=== PATIENT | female | born 1955 | race Caucasian/White ===

== ENCOUNTER 2023-06-09 12:31 | Outpatient (CLI) | payer MEDICARE, MEDICAID, SELFPAY ==
--- NOTE | ~2023-06-09 | DEXA_ITS ---
Bone Density Report Name: SONNY SMITH Age: 67 Sex: Female Ethnicity: White Date of : 1955 Indication: postmenopausal; screening for osteoporosis; height loss; Referring Provider: SOLANGE HARO Study: Bone densitometry was performed. Exam Date: June 09, 2023 Accession number: [id number] Bone Density: Region BMD T-score Z-score Classification AP Spine(L1-L4) 0.988 -0.5 1.3 Normal Femoral Neck (Left) 0.589 -2.3 -0.7 Osteopenia Total Hip (Left) 0.712 -1.9 -0.6 Osteopenia Femoral Neck (Right) 0.625 -2.0 -0.4 Osteopenia Total Hip (Right) 0.624 -2.6 -1.3 Osteoporosis Femoral Neck Mean 0.607 -2.2 -0.6 Osteopenia Total Hip Mean 0.668 -2.2 -0.9 Osteopenia World Health Organization criteria for BMD impression classify patients as: Normal (T-score at or above -1.0), Osteopenia (T-score between -1.0 and -2.5), or Osteoporosis (T-score at or below -2.5). 10-year Fracture Risk: FRAX not reported because: Some T-score for Spine Total or Hip Total or Femoral Neck at or below -2.5 Clinical Information Provided by Patient: Has used the following medications: Vitamin D Patient maximum height was 64 Menopause Age: 51 No regular weight bearing exercise Drinks caffeinated beverages Onset of menses at age 14 Number of children 2 Impression: The patient has osteoporosis, based on the Right Total Hip T-score. Discussion: INCREASED RISK OF FRACTURE. BONE DENSITY IS UNDESIRABLY LOW AT ONE OR MORE SKELETAL SITES, CONSISTENT WITH POSTMENOPAUSAL OSTEOPOROSIS. This patient's lowest T-score meets the World Health Organization's (WHO) criteria for osteoporosis at one or more sites (T-score -2.5 or below). In untreated patients, the risk of osteoporotic fracture increases approximately two-fold for each 1.0 SD decrease in T-score. Low bone density is not the only risk factor for fracture; also consider factors such as patient's age, frailty or poor health, risk of falling, risk of injury, previous osteoporotic fracture, family history of osteoporosis, cigarette smoking, low body weight, etc. Not everyone with low bone mineral density has osteoporosis; osteomalacia and other metabolic bone disorders should also be considered. Patients who have osteoporosis should be evaluated for specific diseases and conditions (secondary causes) that may cause or contribute to bone loss. The [place] [employer]ocrinologists (AACE) and National Osteoporosis Foundation (NOF) recommend pharmacologic intervention for all postmenopausal women whose T-score is in this range. The patient should follow a healthful lifestyle (good nutrition with adequate calcium and vitamin D, and appropriate weight-bearing exercise). Follow-Up: Consider a repeat BMD and Vertebral Fracture Assessment (VFA) exam in 2
--- NOTE | ~2023-06-09 | MM_ITS ---
EXAMINATION: MM screening cyndi BI w lambert HISTORY: Screening mammogram TECHNIQUE: Craniocaudal and mediolateral oblique 3-D tomosynthesis images were obtained and synthetic 2-D images were generated. CAD analysis was submitted and interpreted. COMPARISON: No prior mammogram is available for comparison at this institution. BREAST PARENCHYMAL COMPOSITION: There are scattered areas of fibroglandular density. FINDINGS: No suspicious mass, calcification, or architectural distortion are identified in either christelle ast to suggest malignancy. IMPRESSION: 1. No mammographic evidence of malignancy. 2. Recommend routine screening mammography in one year. BI-RADS Category 1: Negative Reviewed, dictated and finalized at location A.
== END 2023-06-09 12:32 | disposition home or self-care (01) ==
LOC: CHSIMG 12:34
PROVIDERS: PCP Emergency Medicine; Visit Provider Emergency Medicine
DX: Z12.31 Encounter for screening mammogram for malignant neoplasm of breast (principal); Z78.0 Asymptomatic menopausal state; M85.89 Other specified disorders of bone density and structure, multiple sites; M81.0 Age-related osteoporosis without current pathological fracture
CPT/HCPCS: 77063; 77067; 77080

== ENCOUNTER 2023-10-02 08:35 | Day surgery (SDC) | payer MEDICARE, SELFPAY ==
[2023-09-28 13:30] VITALS: BMI 26.9
--- NOTE | 2023-10-02 07:23 | WPDANESEPPF ---
Anes - Initial Pre Proc Eval Procedure: Operation Date: 10/02/23 11:30 Proposed Procedures p Esophagogastroduodenoscopy - Clay Sheets MD s Screening Colonoscopy - Clay Sheets MD Date/Time: 10/02/23 07:23 Surgeon: Clay Sheets MD Pre Op Diagnosis: Dysphagia, Gastric Ulcer, Neoplasm Screening Patient Data Age: 67 Gender: F Height: 1.63 m Weight: 71 kg Allergies Allergy/AdvReac Type Severity Reaction Status Date / Time No Known Allergies Allergy Verified 10/02/23 12:15 Home Medications Medication Instructions Recorded Confirmed Type buprenorphine 300 mg/1.5 mL 300 mg subcut MONTHLY 08/29/23 10/02/23 History solution,exten.rel.subcutaneous syringe (Sublocade) citalopram 40 mg tablet 40 mg PO DAILY 08/29/23 10/02/23 History clonazepam 0.5 mg tablet 0.5 mg PO TID PRN Anxiety 08/29/23 10/02/23 History ergocalciferol (vitamin D2) 1,250 1,250 mcg PO WEEKLY 08/29/23 10/02/23 History mcg (50,000 unit) capsule hydrochlorothiazide 12.5 mg tablet 12.5 mg PO DAILY 08/29/23 10/02/23 History metoprolol succinate 100 mg 100 mg PO DAILY 08/29/23 10/02/23 History tablet,extended release 24 hr valacyclovir 1 gram tablet 1,000 mg PO DAILY 08/29/23 10/02/23 History Patient hx anesthesia problems: none Family hx anesthesia problems: none Results Review: All pre-operative results and documents have been reviewed as part of the pre-operative evaluation. [facility] Past Medical History Medical History (Updated 10/02/23 @ 13:10 by Clay Sheets MD) Anxiety Colon cancer screening Depression Dysphagia GERD (gastroesophageal reflux disease) Hypertension Social History Social History Smoking status: Never smoker Substance use: current Substance use type: marijuana Other substance usage details: daily Living arrangements: alone Spiritual care concerns: No Anes - Eval Final PreProcedure Day of Procedure 10/02/23 07:23 Patient weight: overweight Heart: regular rate and rhythm Lungs: clear to auscultation Airway: Mallampati scale class II Neurological: alert and oriented Last oral intake: >/= 8 hours ASA classification: III Emergent: no Anesthetic plan: proceed Anesthesia type and monitoring: general GIVS and standard monitoring Results Review: All pre-operative results and documents have been reviewed as part of the pre-operative evaluation. Informed Consent: The patient's anesthetic plan and its attendant risks and benefits were discussed with the patient/family/POA. Questions were solicited and answers provided to the satisfaction of the patient/family/POA.
[2023-10-02 12:27] VITALS: BP 145/67; PULSE 45; RESP 16; TEMP 36.1; O2SAT 99; BMI 24.8
[2023-10-02] MEDS: LACTATED RINGERS 1,000 ML 150 ML IV CONT (12:37)
--- NOTE | 2023-10-02 13:09 | PM.HPGS ---
History of Present Illness History of Present Illness Consent: Risks, benefits, and alternatives have been discussed and questions answered. Patient agrees to proceed with procedure. Chief complaint: Dysphagia, Gastric Ulcer, Neoplasm Screening Narrative: Alyssa Barksdale is a 67 year old female with dysphagia, had egd 2019 with small gastric ulcer. Also needs colon screening Review of Systems Constitutional: Constitutional: Denies headache(s) and Denies weakness Eyes: Eyes: Denies blurry vision ENT: Reports Normal hearing present, Denies headache(s) and Denies neck pain Cardiovascular: Cardiovascular: Denies chest pain and Denies dyspnea Respiratory: Respiratory: Denies dyspnea Gastrointestinal: Gastrointestinal: Reports no additional gastrointestinal complaints Genitourinary: Genitourinary: Denies dysuria Musculoskeletal: Musculoskeletal: Denies neck pain Integumentary/Breasts: Skin/Breast: Denies dry skin Neurologic: Reports Normal hearing present, Denies headache(s) and Denies weakness Psychiatric: Psychiatric: Denies anxiety Endocrine: Endocrine: Denies change in body appearance Hematologic/Lymphatic: Hematologic/Lymphatic: Denies easy bleeding Allergic/Immunologic: Allergic/Immunologic: Denies urticaria PMFSH Past Medical History Medical History (Updated 10/02/23 @ 13:10 by Clay Sheets MD) Anxiety Colon cancer screening Depression Dysphagia GERD (gastroesophageal reflux disease) Hypertension Social History Social History Smoking status: Never smoker Substance use: current Substance use type: marijuana Other substance usage details: daily Living arrangements: alone Spiritual care concerns: No Meds Home Medications and Allergies Home Medications Medication Instructions Recorded Confirmed Type buprenorphine 300 mg/1.5 mL 300 mg subcut MONTHLY 08/29/23 10/02/23 History solution,exten.rel.subcutaneous syringe (Sublocade) citalopram 40 mg tablet 40 mg PO DAILY 08/29/23 10/02/23 History clonazepam 0.5 mg tablet 0.5 mg PO TID PRN Anxiety 08/29/23 10/02/23 History ergocalciferol (vitamin D2) 1,250 1,250 mcg PO WEEKLY 08/29/23 10/02/23 History mcg (50,000 unit) capsule hydrochlorothiazide 12.5 mg tablet 12.5 mg PO DAILY 08/29/23 10/02/23 History metoprolol succinate 100 mg 100 mg PO DAILY 08/29/23 10/02/23 History tablet,extended release 24 hr valacyclovir 1 gram tablet 1,000 mg PO DAILY 08/29/23 10/02/23 History Allergies Allergy/AdvReac Type Severity Reaction Status Date / Time No Known Allergies Allergy Verified 10/02/23 12:15 Vital Signs Vital Signs - 24 hr 10/02/23 12:27 Temperature 97.0 F L Pulse Rate 45 L Respiratory Rate 16 Blood Pressure 145/67 H Pulse Oximetry 99 Oxygen Delivery Room Air Exam Const: General: comfortable and no acute distress HENMT: Face/Nose/Sinus: Normal nares present Eyes: General: appearance normal, both eyes and all related structures Neck: Neck: no JVD Resp: Auscultation: clear to auscultation bilaterally Cardio: Rate: regular rate Rhythm: regular rhythm GI: Inspection: non-distended GI Palp: Yes Soft to palpation Skin: General skin exam: normal color Neuro: General: gait normal Speech: normal speech Extrem: General: normal to inspection Psych: Mental Status: mental status grossly normal Assessment and Plan Assessment and plan (1) Dysphagia: Code(s): R13.10 - Dysphagia, unspecified Status: Acute Assessment and Plan: egd with bx (2) Colon cancer screening: Code(s): Z12.11 - Encounter for screening for malignant neoplasm of colon Status: Acute Assessment and Plan: colonoscopy
[2023-10-02 13:48] VITALS: BP 84/48; PULSE 53; RESP 16; O2SAT 98
--- NOTE | 2023-10-02 13:50 | WPDANESPN ---
Anes - Prog Note Post-Op Date/Time: 10/02/23 13:50 Cardiovascular status: normal Respiratory status: normal Airway patency: baseline Mental status: baseline Post-Op hydration status: normal Vital Signs: Last Vital Signs Temp 36.1 C L 10/02/23 12:27 Pulse 53 L 10/02/23 13:48 Resp 16 10/02/23 13:48 BP 84/48 L 10/02/23 13:48 Pulse Ox 98 10/02/23 13:48 O2 Del Method Room Air 10/02/23 13:48 Pain Score (VAS): 0 I/O: Intake & Output 10/01/23 10/02/23 10/02/23 23:59 07:59 15:59 Intake Total 600 Balance 600 Post-procedural complaints: none Patient Feedback: Patient satisfied with anesthetic care. Other Findings: Patient vital signs back to baseline. Patient denies nausea and vomiting. Patient's pain under control. Patient OK for discharge.
[2023-10-02 13:58] VITALS: BP 118/92; PULSE 62; RESP 16; O2SAT 100
[2023-10-02 14:08] VITALS: BP 136/83; PULSE 65; RESP 16; O2SAT 99
== END 2023-10-02 14:24 | disposition home or self-care (01) ==
PROVIDERS: PCP Emergency Medicine; Visit Provider Internal Medicine Gastroenterology
PROC: 0DJ08ZZ Inspection of Upper Intestinal Tract, Via Natural or Artificial Opening Endoscopic (ICD-10-PCS; CPT 43235; principal; 2023-10-02 11:30)
PROC: 0DJD8ZZ Inspection of Lower Intestinal Tract, Via Natural or Artificial Opening Endoscopic (ICD-10-PCS; CPT 45378; 2023-10-02 11:30)
DX: Z12.11 Encounter for screening for malignant neoplasm of colon (principal); D12.3 Benign neoplasm of transverse colon; K57.30 Diverticulosis of large intestine without perforation or abscess without bleeding; K30 Functional dyspepsia; K44.9 Diaphragmatic hernia without obstruction or gangrene
CPT/HCPCS: 45385; 43239

== ENCOUNTER 2023-10-03 10:43 | Outpatient (NON) | payer MEDICARE, SELFPAY | END 2023-10-03 10:44 | disposition home or self-care (01) | LOC: ANHLAB 10:45 | PROVIDERS: PCP Emergency Medicine; Visit Provider Internal Medicine Gastroenterology | DX: Z12.11 Encounter for screening for malignant neoplasm of colon (principal); D12.3 Benign neoplasm of transverse colon; K31.89 Other diseases of stomach and duodenum | CPT/HCPCS: 88305 ==

== ENCOUNTER 2024-12-20 14:00 | Outpatient (CLI) | payer MEDICARE, MEDICAID, SELFPAY ==
--- NOTE | 2024-12-20 13:59 | ECHO_ITS ---
Patient Info Name: Alyssa Barksdale Age: 69 years : 1955 Gender: Female Ht: 62 in Wt: 148 lbs BSA: 1.73 m2 HR: 67 bpm BP: 134 / 66 mmHg Heart Rhythm: Sinus Rhythm Technical Quality: Good Exam Date: 12/20/2024 2:05 PM Exam Location: Echo Lab Patient Status: Outpatient Admit Date: 12/20/2024 Staff Ordering Physician: Gerardo Malave DO Coat Hanger Shaper Machine Operator: Enma Nova RDCS Attending Provider: Gerardo Malave DO Referring Physician: Ananda SHEA; Exam Type: CA echo dop color flow w con Study Info Indications R06.09 - Other forms of dyspnea Complete two-dimensional, color flow and Doppler transthoracic echocardiogram is performed. Summary 1. Complete two-dimensional, color flow and Doppler transthoracic echocardiogram is performed. 2. Left ventricular chamber dimension is normal. 3. Left ventricular systolic function is normal, estimated at 60-65%. 4. The left ventricular diastolic function is grade I diastolic dysfunction. 5. E/e' 7 is not elevated. 6. Left atrial chamber dimension is mildly enlarged. 7. There is mild mitral valve regurgitation. 8. There is no tricuspid valve regurgitation. 9. No pulmonary hypertension, estimated pulmonary arterial systolic pressure is 20 mmHg. Left Ventricle E/e' 7 is not elevated. Left ventricular chamber dimension is normal. Left ventricular systolic function is normal, estimated at 60-65%. The left ventricular diastolic function is grade I diastolic dysfunction. Right Ventricle Right ventricular systolic function is normal and with normal TAPSE 2.0 cm. Right ventricular chamber dimension is normal. Left Atria Left atrial chamber dimension is mildly enlarged. Right Atria Right atrial chamber dimension is normal. Aortic Valve The aortic valve is trileaflet. There is no aortic valve stenosis. There is no aortic valve regurgitation. Pulmonic Valve There is no pulmonic regurgitation. Mitral Valve There is no mitral valve stenosis. There is mild mitral valve regurgitation. Tricuspid Valve There is no tricuspid valve regurgitation. No pulmonary hypertension, estimated pulmonary arterial systolic pressure is 20 mmHg. Pericardium/Pleural There is no pericardial effusion. Inferior Vena Cava Normal inferior vena cava with >50% collapse upon inspiration consistent with normal right atrial pressure, 5 mmHg. Aorta The aortic root size at the sinus of Valsalva is normal. Left Ventricular Outflow Tract Name Value Normal LVOT 2D LVOT Diameter 2.02 cm LVOT Doppler LVOT Peak Gradient 4 mmHg LVOT Mean Gradient 2 mmHg LVOT VTI 18.41 cm LVOT VTI/AV VTI Ratio 0.69 LVOT Stroke Volume 58.71 ml LVOT CO 3.60 l/min LVOT CI 2.08 L/min/m2 Pulmonic Valve Name Value Normal RVOT Doppler RVOT Peak Gradient 3 mmHg PV Doppler PV Peak Gradient 7 mmHg Mitral Valve Name Value Normal MV Doppler MV Decel [place] 286.43 cm/s2 MV PHT 0 s MV Area (PHT) 3.46 cm2 4.00-5.00 MV Diastolic Function MV E Peak Velocity 62.76 cm/s MV A Peak Velocity 71.26 cm/s MV E/A 0.88 MV Decel Time 0 s MV Annular TDI MV E/e' (Septal) 7.59 <=8.00 MV E/e' (Lateral) 7.90 <=8.00 MV E/e' (Average) 7.74 Tricuspid Valve Name Value Normal TV Regurgitation Doppler TR Peak Velocity 196.63 cm/s TR Peak Gradient 15 mmHg Estimated PAP/RSVP RA Pressure 5 mmHg <=5 PA Systolic Pressure 20 mmHg <36 RV Systolic Pressure 20 mmHg <36 Aorta Name Value Normal Ascending Aorta Ao Root Diameter (MM) 2.54 cm Ao Root Diam Index (MM) 1.47 cm/m2 Aortic Valve Name Value Normal AV Doppler AV Peak Velocity 135.54 cm/s AV Peak Gradient 7 mmHg AV Mean Gradient 4 mmHg AV VTI 26.66 cm AV Area (Cont Eq VTI) 2.20 cm2 >=3.00 AV Area (Cont Eq Hussein) 2.27 cm2 AV Regurgitation 2D LVOT Area 3.19 cm2 Ventricles Name Value Normal LV Dimensions 2D/MM IVS Diastolic Thickness (2D) 0.87 cm 0.60-1.00 LVID Diastole (2D) 4.30 cm 3.80-5.20 LVIW Diastolic Thickness (2D) 0.89 cm 0.60-0.90 LVID Systole (2D) 2.45 cm 2.20-3.50 LVOT Diameter 2.02 cm LV Mass (2D Cubed) 119.33 g 67.00-162.00 LV Mass Index (2D Cubed) 0.01 g/cm2 0.00-0.01 Relative Wall Thickness (2D) 0.42 LV Fractional Shortening/Ejection Fraction 2D/MM LV Fractional Shortening (2D) 43 % 27-45 LV EF (2D Teicholz) 74 % 54-74 LV Diastolic Volume (4C MOD) 57.74 ml LV EF (4C MOD) 61 % LV Diastolic Volume (2C MOD) 51.01 ml LV EF (2C MOD) 68 % LV Diastolic Volume (BP MOD) 55.85 ml 46.00-106.00 LV Diastolic Volume Index (BP MOD) 0.03 l/m2 0.03-0.06 LV Systolic Volume (BP MOD) 20.17 ml 14.00-42.00 LV Systolic Volume Index (BP MOD) 0.01 l/m2 0.01-0.02 LV EF (BP MOD) 64 % 54-74 LV Diastolic Length (4C) 6.40 cm LV Systolic Length (4C) 5.20 cm LV Stroke Volume (4C MOD) 35.50 ml Atria Name Value Normal LA Dimensions LA Dimension (MM) 4.47 cm 2.70-3.80 LA Volume (4C A-L) 57.22 ml LA Volume (BP A-L) 59.23 ml RA Dimensions RA Area (4C) 9.62 cm2 <=18.00 Report Signatures
--- OUTSIDE RECORDS SUMMARY | 2024-12-20 14:04 | XMS_ITS ---
Author Organization [facility]ar Address [address] [facility] [address], [place] [address] Care Team Providers Care Siphon Operator Name Role Phone Freddy Hoff MD Primary Care Provider Unavailabl Rosario Mayo Unavailable [phone] REASON FOR VISIT yd,f/u,cc Medications Medication SIG (Take, Route, Frequency, Duration) Notes Start Date End Date Status Brixadi Active Rosuvastatin Calcium Active amLODIPine Besylate 10 MG 1 tablet Orall y Once a day for 30 day(s) Active CeleXA 20 MG 1 tablet Orally Once a day for 30 day(s) Active Encounters Encounter Location Date Provider Diagnosis [facility] [address] [facility] [address] [address] 10/28/2024 Rosario Gusman Plan Of Treatment No Information Progress Notes * Alyssa SMITH ADOB:1954 (69 yo F)Acc No.[id number]:10/28/2024 Progress Notes Patient: Alyssa BURLESON Provider: Quyen GUSMAN MD :1955 A ge:69 Y S ex:Female Date:10/28/2024 Address:[address] [place], [place] [id number] Pcp:Freddy Hoff MD Subjective: * Chief Complaints: * 1 . Yd,f/u,cc. * Medical History: * Medications: T aking CeleXA 20 MG Tablet 1 tablet Orally Once a day , Taking amLODIPine Besylate 10 MG Tablet 1 tablet Orally Once a day , Taking Rosuvastatin Calcium , Taking Brixadi Objective: * Vitals: Assessment: Plan: * Treatment: * Billing Information: * Visit Code: * Procedure Codes: * Electronic signature of Rosario Gusman MD on 12/20/2024 at 02:04 PM PROGRAM MANAGEMENT ANALYST Sign off status: Pending * Provider: Quyen GUSMAN MD Date: Generated for Mitchell solis/Anthony/Gianfranco on: 12/20/2024 02:04 PM PROGRAM MANAGEMENT ANALYST
--- OUTSIDE RECORDS SUMMARY | 2024-12-20 14:04 | XMS_ITS | Clinical Summary ---
Author Organization [facility] Address [address] [place] [address] Care Team Providers Care Real Estate Closer Name Role Phone Demetrio Sotelo MD Primary Care Provider Bernadine velasquez Allergies Active Allergy Reactions Criticality Noted Date Comments Baclofen Other (See Comments) 09/25/2018 headache Medications Medication Sig Dispensed Refills Start Date End Date Status citalopram (CELEXA) 40 MG tablet Take 1 tablet by mouth daily. 10/03/2018 Active clonazePAM (KLONOPIN) 1 MG tablet Take 1 tablet by mouth 3 times daily. 5 01/08/2019 Active ferrous sulfate 325 (65 FE) MG tablet Take 325 mg by mouth daily. 02/08/2018 Active fluticasone (FLONASE) 50 MCG/ACT nasal spray [place] 1-2 sprays in each nostril as directed. Active hydrochlorothiazide (HYDRODIURIL) 25 MG tablet Take 25 mg by mouth daily. 07/11/2018 Active metoPROLOL succinate (TOPROL-XL) 100 MG 24 hr tablet Take 1 tablet by mouth daily. 10/03/2018 Active pantoprazole (PROTONIX) 40 MG tablet Take 1 tablet by mouth daily. 12/04/2018 Active buprenorphine (SUBUTEX) 8 MG sublingual tabletIndications:O pioid Dependence Indications: Opioid Dependence Take 1 and 1/2 tablets daily 45 tablet 05/23/2019 Active Active Problems Problem Noted Date Diagnosed Date Controlled substance agreement signed 01/21/2019 Surgical History Surgery Date Site/Laterality Comments KNEE SURGERY Medical History Medical History Date Comments Hypertension Depression Gastric ulcer Family History Medical History Relation Comments Cancer, Lung Other Relation Status Comments Other Social History Tobacco Use Types Packs/Day Years Used Date Smoking Tobacco: Never Smokeless Tobacco: Never Tobacco Cessation:Counseling Given: Yes Alcohol Use Standard Drinks/Week Comments No 0 (1 standard drink = 0.6 oz pur e alcohol) PHQ-2 Answer Date Recorded PHQ-2 Score 2 01/18/2019 Inadequate Housing Answer Date Recorded Social Determinants: Housing (Overall Score Help er) 0 06/21/2019 Sex and Gender Information Value Date Recorded Sex Assigned at Not on file Gender Identity Not on file Sexual Orientation Not on file Obstetrics History Last Filed Vital Signs Vital Sign Reading Time Taken Comments Blood Pressure - - Pulse - - Temperature - - Respiratory Rate 16 05/23/2019 4:58 PM CDT Oxygen Saturation - - Inhaled Oxygen Concentration - - Weight 68.5 kg (151 lb) 05/23/2019 4:58 PM CDT Height 152.4 cm (5') 05/23/2019 4:58 PM CDT Body Mass Index 29.49 05/23/2019 4:58 PM CDT Plan of Treatment Health Maintenance Due Date Last Done Comments Depression Screening 1968 DTaP/Tdap/Td Vaccine (1 - Tdap) 1975 Breast Cancer Screening 1996 CT Colonography 2001 Cologuard 2001 Colonoscopy 2001 Colorectal Cancer Screening 2001 Fecal Occult Blood 2001 Sigmoidoscopy 2001 Pneumococcal Vaccine 50+ (1 of 1 - PCV) 2006 Shingles Vaccine (1 of 2) 2006 Osteoporosis Screening 2021 COVID-19 Vaccine ( - 2023-2 5 season) 2024 Influenza Vaccine (#1) 2024 Respiratory Syncytial Virus (RSV) Vaccine 60+ (1 - 1-dose 75+ series) 2031 HPV Vaccine Aged Out No longer eligi ble based on patient's age to complete this topic Hepatitis A Vaccine Aged Out No longe r eligible based on patient's age to complete this topic Hepatitis B Vaccine (For Physician/APC Discussion) Aged Out No longer elig ible based on patient's age to complete this topic Meningococcal Serogroup B Vaccine Aged Out No longer eligible based on patient's age to complete this topic Meningococcal Vaccine Aged Out No alva yamil eligible based on patient's age to complete this topic Care Teams Real Estate Closer Relationship Specialty Start Date End Date Demetrio Sotelo MD PCP - General Family Practice 01/03/19
--- OUTSIDE RECORDS SUMMARY | 2024-12-20 14:04 | XMS_ITS | Patient Health Record ---
Author Organization [facility] Address [address] [place] [address] Care Team Providers Care Group Fitness Assistant Department Head Name Role Phone Keljosephine Sooosorio Primary Care Provider Reason For Referral No Information Medications Medication SIG (Take, Route, Frequency, Duration) Notes Start Date End Date Status Buprenorphine HCl-Naloxone H Cl 8-2 MG 1 film under the tongue and allow to dissolve Sublingual Once a day for 28 days 01/09/2020 Active Zubsolv 8.6-2.1 MG 1 tablet under the tongue and allow to dissolve Sublingual Once a day for 28 days 04/24/2020 Active CeleXA 40 MG 0.5 tablet Orally Once a day for 30 day(s) Active Zubsolv 8.6-2.1 MG 1 tablet under the tongue and allow to dissolve Sublingual Once a day for 28 days 04/24/2020 Active Metoprolol Succinate 100 MG as directed Orally Active hydroCHLOROthiazide 12.5 MG 1 capsule in the morning Orally Once a day for 30 day(s) Active Social History Sex Assigned At : Social History Observation Description Sex Assigned At Female Alcohol Screen (Audit-C) Question Answer Notes Did you have a drink containing alcohol in the p ast year? No Points 0 Interpretation Negative PRAPARE Question Answer Notes Date Completed/Updated: 01/01/2020 What is your current housing situation? I have h ousing Are you worried about losing your housing? Yes What is the highest level of school that you have finished? 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 Check all that apply I do not have problems meeting my needs Has lack of transportation k ept you from medical appointments, meetings, work or from getting things needed for daily living? Yes, it has kept me from medical appointments or from getting my medications,Yes, it has kept me from non-medical meetings, appointments, work, or getting things needed for daily living How often do you see or talk to people that you care about and feel close to? (For example: talking to friends on the phone, visiting friends or family, going to taoism or club meetings) 1 or 2 times a week How stressed are you? Stress is when someone feels tense, nervous, anxious, or can\t sleep at night because their mind is troubled Very much In the past year have you sp ent more than 2 nights in a row in a fdc, care home, [place] [facility] [place] center, or juvenile correctional facility? No Are you a refugee? No What country are you from? [place] Do you feel physically and e motionally safe where you currently live? Yes In the past year, have you b een afraid of your partner or ex-partner? 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
--- OUTSIDE RECORDS SUMMARY | 2024-12-20 14:04 | XMS_ITS | Patient Health Record ---
Author Organization [facility] Address [address] [facility] [address] [place] [address] Care Team Providers Care Supervisor Cytology Name Role Phone Luis Eduardo YOUNGBLOOD, Freddy Primary Care Provider Jamil PerryRosario Unavailable [phone] Allergies No Known Allergies Results Component Value Reference Range Notes eGFR Reviewed date:06/20/2024 04:58:56 PM Interpretation: Performing Lab:[facility] , [address] [address] Notes/Report: eGFR 30 >=60 mL/min/1.73 m2 Interpretive Data Reference Interval Normal >/= 90 mL/min/1.73m2 Mildly decreased* 60 - 89 mL/min/1.73m2 Mildly to moderately decreased 45 - 59 mL/min/1.73m2 Moderately to severely decreased 30 - 44 mL/min/1.73m2 Severely decreased 15 - 29 mL/min/1.73m2 Kidney Failure < 15 mL/min/1.73m2 *Relative to young adult level Estimated glomerular filtration rate is determined by the 2020 CKD-EPI equation recommended by the National Kidney Foundation (A Unifying Approach to GFR Estimation: Recommendations of the NKF-ASK Task Force on Reassessing the Inclusion of Race in Diagnosing Kidney Disease, JASN 2020). The CKD-EPI equation should not be used for patients with unstable renal function and has not been validated in children and those over 70. Current interpretive data was last reviewed 2021. UA Micro (All Sites) Reviewed date:06/20/2024 12:18:26 PM Interpretation: Performing Lab:[facility] , [address] [place] [address] Notes/Report: WBC, Ur 6-10 0-5 /HPF RBC, Ur 0-2 0-2 /HPF Epithl Squam, Ur 1-5 0-5 /HPF Bacteria, Ur Trace Culture reflex comment See Below Reflex conditions fo r urine culture (WBC >10) not met. Epithl Transitional Ur 1-5 0-0 /HPF Mucous Ur Present UA, reflex Micro to Culture Reviewed date:06/20/2024 12:18:26 PM Interpretation: Performing Lab:[facility] , [address] [place] [address] Notes/Report: Color, Ur Yellow Yellow Clarity, Ur Clear Clear Spec Grav, Ur 1.011 1.003-1.030 pH, Ur 6.0 Interpretive Data ?Urine pH is affected by diet, medications, systemic acid-base disturbances, and renal tubular function. pH may affect urinary stone formation. For example, urine pH below 6.0 may help reduce the tendency for calcium phosphate stones and pH greater than 6.0 may reduce the tendency for uric acid stone formation. Source: [facility] [employer] Current Interpretive Data was last revised on 2017 Protein, Ur Ql Negative Negative Glucose, Ur Ql Negative Negative Ketones, Ur Negative Negative Bilirubin, Ur Negative Negative Blood, Ur Negative Negative Urobilinogen, Ur <2.0 <2.0 mg/dL Nitrite, Ur Negative Negative Leukocyte Esterase, Ur 2+ Negative UA reflex comment See Below Reflex to microscopic UA will be performed. Complement C4 Reviewed date:06/20/2024 04:58:56 PM Interpretation: Performing Lab:[facility] , [address] [place] [address] Notes/Report: Complement, C4 38 10-40 mg/dL Complement C3 Reviewed date:06/20/2024 04:58:56 PM Interpretation: Performing Lab:[facility] , [address] [place] [address] Notes/Report: Complement, C3 116 90-180 mg/dL Basic Metabolic Panel Reviewed date:06/20/2024 04:58:56 PM Interpretation: Performing Lab:[facility] , [address] [place] [address] Notes/Report: Sodium 137 135-145 mmol/L Plasma Potassium 4.5 3.3-4.9 mmol/L Chloride 100 97-110 mmol/L Total CO2 23 22-32 mmol/L Anion Gap 14 2-15 mmol/L BUN 63 6-25 mg/dL Creatinine 1.85 0.60-1.10 mg/dL Glucose 106 70-199 mg/dL Interpretive Data Fasting glucose >/= 126 mg/dl is diagnostic for diabetes. Fasting is defined as no caloric intake for at least 8 hours. Fasting glucose between 100 mg/dl to 125 mg/dl is diagnostic of prediabetes. In a patient with classic symptoms of hyperglycemia or hyperglycemic crisis, a random glucose >/= 200 mg/dl is diagnostic for diabetes. In the absence of unequivocal hyperglycemia, results should be confirmed by repeat testing. The classification and Diagnosis of Diabetes Diabetes Care 202; 46: S19-S40. Current interpretive data was last revised 2022. Total Calcium 9.8 8.5-10.3 mg/dL BECKY reflex titer pattern JAI + dsDNA Reviewed date:06/23/2024 03:51:41 PM Interpretation: Performing Lab:[facility] , [address] [place] [address]. [facility] [address] Notes/Report: BECKY, Qual Negative Interpretive Data Normal range for BECKY Qualitative Antibody = Negative. 1. BECKY is performed using indirect immunofluorescence against HEp-2 cells 2. BECKY titers are performed on all positive qualitative results. 3. A significantly positive BECKY result is defined as a positive nuclear fluorescence at a titer of 1:80 or greater. 4. 15% of normal people above age 65 have significantly positive BECKY results. 5% or less of normal people age 65 or under have significantly positive BECKY results. Current interpretive data was last revised on 2020. Testing performed by: [facility], [address] [facility], [place]., [address] BECKY SCREEN/REFLEX TITER/JESSICA KATHIE Reviewed date:06/01/2024 12:52:44 PM Interpretation: Performing Lab:[facility], [address] [facility], [place], [address] Notes/Report: Anti-Nuclear Antibody Negative Negative BECKY titers and patterns are performed using an immunofluorescence assay technology. Follow up testing for positive specimens, if required, is performed using multiplex bead technology. BECKY PATTERN Cytoplasmic autoantibodies present. Suggest follow-up testing. (none) Immunofluorescent staining pattern of substrate suggests cytoplasmic autoantibodies. If clinically indicated, evaluate for Anti-Smooth Muscle, Anti-Mitochondrial, and Anti-Parietal Cell antibodies. G6PD, QUANTITATIVE, RBC Reviewed date:06/01/2024 12:52:44 PM Interpretation: Performing Lab:[address], [address] Notes/Report: G-6-PD, RBC 15.0 7.0-20.5 U/g Hgb Performing Organization Information: Site ID: [facility] Address: [address] [place] [id number] Director: Louis Flynn CYCLIC CITRULLINATED PEPTIDE (CCP) AB, IgG/IgA Reviewed date:06/01/2024 12:52:44 PM Interpretation: Performing Lab:[address], [address] Notes/Report: CCP Antibodies 5 0-19 units Negative <20 Weak positive 20 - 39 Moderate positive 40 - 59 Strong positive >59 Performed at: [address] [place] [id number] Ammonia Refrigeration Technician: Wesley Arteaga PhD, Phone: [phone] SEDIMENTATION RATE, ESR Reviewed date:06/01/2024 12:52:44 PM Interpretation: Performing Lab:[address], [address] Notes/Report: Sedimentation Rate 38 (Based on documented legal sex) 0-30 mm/Hour CBC W/DIFF Reviewed date:06/01/2024 12:52:44 PM Interpretation: Performing Lab:[address], [address] Notes/Report: WBC 4.0 3.5-10.5 10'3/uL RBC 3.42 (Based on documented legal sex) 3.80-5.20 10'6/uL HGB 10.9 (Based on documented legal sex) 11.6-15.4 g/dL HCT 32.1 (Based on documented legal sex) 34.0-45.0 % MCV 93.9 80.0-99.0 fL MCH 31.9 27.0-34.0 pg MCHC 34.0 32.0-35.5 g/dL RDW 11.7 11.0-15.0 % PLT 110 150-400 10'3/uL MPV 13.0 8.8-12.1 fL NRBC's 0.0 0.0 % Absolute NRBCs 0.0 No reference ran ge established 10'3/uL Neutrophils 50.6 34.0-73.0 % Lymphocytes 39.2 15.0-50.0 % Monocytes 7.2 1.0-15.0 % Eosinophils 2.0 0.0-8.0 % Basophils 1.0 0.0-2.0 % Immature Granulocytes 0.0 No defined reference range % Absolute Neutrophils 2.0 1.5-8.0 10'3/uL Absolute Lymphocytes 1.6 1.0-4.0 10'3/uL Absolute Monocytes 0.3 0.2-1.0 10'3/uL Absolute Eosinophils 0.1 0.0-0.6 10'3/uL Absolute Basophils 0.0 0.0-0.3 10'3/uL Absolute Immature Granulocytes 0.0 0.00-0.10 10'3/uL 05/31/2024 5:23 AM: P indicates partial results on a panel have been released. Additional results will follow. 05/31/2024 5:23 AM: This result has been final verified. No additional or changed results are expected. VITAMIN D, 25-OH (TOTAL D2/D 3) Reviewed date:06/01/2024 12:52:43 PM Interpretation: Performing Lab:[facility], [address] [place] [address], [address] Notes/Report: Vitamin D, 25-Hydroxy, Total 54.9 30.0-100.0 ng/mL Suggestive of Deficiency: <20 ng/mL Suggestive of Insufficiency: 20-29 ng/mL Suggestive of Sufficiency: 30-100 ng/mL Suggestive of Toxicity: >150 ng/mL PTH, INTACT Reviewed date:06/01/2024 12:52:43 PM Interpretation: Performing Lab:[facility], [place], [address] Notes/Report: PTH, Intact 77.8 12.0-88.0 pg/mL CMP(COMPREHENSIVE METABOLIC PANEL) Reviewed date:06/01/2024 12:52:43 PM Interpretation: Performing Lab:[facility], [place], [address] Notes/Report: Sodium 136 133-146 mmol/L Potassium 4.1 3.5-5.1 mmol/L Chloride 103 98-107 mmol/L Carbon Dioxide 27 21-31 mmol/L Anion Gap 6 4-13 mmol/L Blood Urea Nitrogen 37 7-25 mg/dL Creatinine 1.89 0.60-1.30 mg/dL eGFRcr (CKD-EPI 2020) 29 >=60 mL/mi n/1.73 m2 Calcium 9.5 8.3-10.5 mg/dL Glucose 90 70-100 mg/dL Protein, Total 7.1 6.4-8.3 g/dL Albumin 4.3 3.5-5.0 g/dL ALT 11 9-43 units/L Alkaline Phosphatase 41 34-104 units/L AST 17 13-39 units/L Bilirubin, Total 0.3 0.2-1.2 mg/dL TSH Reviewed date:06/01/2024 12:52:43 PM Interpretation: Performing Lab:[facility], [address] [place] [address], [address] Notes/Report: TSH 2.87 0.30-5.33 uIU/mL CK Reviewed date:06/01/2024 12:52:43 PM Interpretation: Performing Lab:[facility], [address] [place] [address], [address] Notes/Report: CK, Total 96 26-192 units/L RHEUMATOID FACTOR (RF), LEANN TITATIVE Reviewed date:06/01/2024 12:52:43 PM Interpretation: Performing Lab:[facility], [address] [place] [address], [address] Notes/Report: Rheumatoid Factor, Quantitative Interpretation Negative Negative RF, Quantitation <10 <=14 IU/mL CRP (C-REACTIVE PROTEIN) Reviewed date:06/01/2024 12:52:43 PM Interpretation: Performing Lab:[facility], [address] [place] [address], [address] Notes/Report: C-Reactive Protein <1.0 0.0-10.0 mg/L Reason For Referral No Information Medications Medication SIG (Take, Route, Frequency, Duration) Notes Start Date End Date Status Brixadi Active Rosuvastatin Calcium Active amLODIPine Besylate 10 MG 1 tablet Orall y Once a day for 30 day(s) Active CeleXA 20 MG 1 tablet Orally Once a day for 30 day(s) Active Social History Tobacco Use: Social History Observation Description Date Details (start date - stop date) Never Smoker NA - NA Household Question Answer Notes Marital status: single Number of children in household: 0 Tobacco Control (Standard) Question Answer Notes Tobacco use: Nonsmoker Problems Problem Type SNOMED Code ICD Code Onset Dates Problem Status W/U Status Risk Notes Problem [id number] Vitamin D deficiency (E55.9) Active confirmed Vital Signs Heart Rate 66 /min 06/20/2024 Temperature 98.0 degrees Fahrenheit 05/30/2024 Blood pressure diastolic 64 mm Hg 06/20/2024 Oximetry 96 % 06/20/2024 Height 63 in 06/20/2024 Blood pressure systolic 100 mm Hg 06/20/2024 Weight 148.0 lbs 06/20/2024 BMI 26.21 kg/m2 06/20/2024 Encounters Encounter Location Date Provider Diagnosis [facility] [address] [facility], [place] [address] 05/07/2024 Rosario Du [facility] [address] [address] 05/30/2024 Rosario Du Pain in unspecified joint M25.50 ; Postmenopausal osteoporosis M81.0 and Vitamin D deficiency E55.9 [facility] [address] [facility] [address], [place] [address] 06/11/2024 Rosario Du Pain in unspecified joint M25.50 ; Postmenopausal osteoporosis M81.0 and Vitamin D deficiency E55.9 [facility] [address] [facility] [address], [place] [address] 06/20/2024 Rosario Du Postmenopausal osteoporosis M81.0 ; Decreased GFR R94.4 ; Chronic anemia D64.9 ; Thrombocytopenia D69.6 and BECKY positive R76.8 [facility] [address] [facility] [address], [place] [address] 06/06/2024 Rosario Du [facility] [address] [facility] [address], [place] [address] 06/23/2024 Rosario Du Assessments Encounter Date Diagnosis (ICD Code) Assessment Notes Treatment Notes Treatment Clinical Notes Section Notes 05/30/2024 Pain in unspecified joint (ICD-10 - M25.50) 68 year old female with osteoporosis with history of traumatic fracture. She takes vitamin D 84607v/wk. Labs will be ordered to rule out secondary causes of osteoporosis. She likely has osteoarthritis causing joint pain. Labs will be ordered to rule out other possibilities. Follow up virtual visit will be scheduled. Thank you for referring this patient. cc Dr. Freddy Hoff 05/30/2024 Postmenopausal osteoporosis (ICD-10 - M81.0) 68 year old female with osteoporosis with history of traumatic fracture. She takes vitamin D 90900c/wk. Labs will be ordered to rule out secondary causes of osteoporosis. She likely has osteoarthritis causing joint pain. Labs will be ordered to rule out other possibilities. Follow up virtual visit will be scheduled. Thank you for referring this patient. cc Dr. Freddy Hoff 06/11/2024 Pain in unspecified joint (ICD-10 - M25.50) 68 year old female with osteoporosis with history of traumatic fracture. She takes vitamin D 40996q/wk. Labs will be ordered to rule out secondary causes of osteoporosis. She likely has osteoarthritis causing joint pain. Labs will be ordered to rule out other possibilities. Follow up virtual visit will be scheduled. Thank you for referring this patient. cc Dr. Freddy Hoff 06/20/2024 Decreased GFR (ICD-10 - R94.4) labs discussed with patient, GFR 29, not sure if this is chronic or acute, will repeat Cr/BUN/GFR, order UA, consider referring to nephrology, repeat BECKY (titer negative but ?cytoplasmic pattern) 06/20/2024 Postmenopausal osteoporosis (ICD-10 - M81.0) labs discussed with patient, GFR 29, not sure if this is chronic or acute, will repeat Cr/BUN/GFR, order UA, consider referring to nephrology, repeat BECKY (titer negative but ?cytoplasmic pattern) 06/20/2024 Chronic anemia (ICD-10 - D64.9) labs discussed with patient, GFR 29, not sure if this is chronic or acute, will repeat Cr/BUN/GFR, order UA, consider referring to nephrology, repeat BECKY (titer negative but ?cytoplasmic pattern) 06/11/2024 Postmenopausal osteoporosis (ICD-10 - M81.0) 68 year old female with osteoporosis with history of traumatic fracture. She takes vitamin D 02029v/wk. Labs will be ordered to rule out secondary causes of osteoporosis. She likely has osteoarthritis causing joint pain. Labs will be ordered to rule out other possibilities. Follow up virtual visit will be scheduled. Thank you for referring this patient. cc Dr. Freddy Hoff 06/20/2024 Thrombocytopenia (ICD-10 - D69.6) labs discussed with patient, GFR 29, not sure if this is chronic or acute, will repeat Cr/BUN/GFR, order UA, consider referring to nephrology, repeat BECKY (titer negative but ?cytoplasmic pattern) 06/11/2024 Vitamin D deficiency (ICD-10 - E55.9) 68 year old female with osteoporosis with history of traumatic fracture. She takes vitamin D 40315k/wk. Labs will be ordered to rule out secondary causes of osteoporosis. She likely has osteoarthritis causing joint pain. Labs will be ordered to rule out other possibilities. Follow up virtual visit will be scheduled. Thank you for referring this patient. cc Dr. Freddy Hoff 05/30/2024 Vitamin D deficiency (ICD-10 - E55.9) 68 year old female with osteoporosis with history of traumatic fracture. She takes vitamin D 40473f/wk. Labs will be ordered to rule out secondary causes of osteoporosis. She likely has osteoarthritis causing joint pain. Labs will be ordered to rule out other possibilities. Follow up virtual visit will be scheduled. Thank you for referring this patient. cc Dr. Freddy Hoff 06/20/2024 BECKY positive (ICD-10 - R76.8) labs discussed with patient, GFR 29, not sure if this is chronic or acute, will repeat Cr/BUN/GFR, order UA, consider referring to nephrology, repeat BECKY (titer negative but ?cytoplasmic pattern) Plan Of Treatment Pending Test Test Name Order Date PROTEIN ELECTROPHORESIS, SERUM, INTERPRE TATION 05/30/2024 Insurance Providers Payer Name Payer Address Payer Phone Subscriber Number Group Number Insured Name Patient Relationship to Insured Coverage Start Date Coverage End Date [facility] Medicare Advantage AAR [address] [address] [place] [id number] Alyssa Barksdale Self - patient is the insured Medical (General) History Medical History History ICD Code osteoporosis, anxiety, hyperlipidemia, h ypertension, GERD Surgical History Surgery Date(Month/Year) knee surgery
--- OUTSIDE RECORDS SUMMARY | 2024-12-20 14:04 | XMS_ITS | Referral Summary ---
Author Organization [facility] Address [address] [place] [address] Care Team Providers Care Bilingual Instructor Name Role Phone Gorge Mead Primary Care Provider + Alyssa Becerra Unavailable Unavailable Allergies No known active allergies Medications buprenorphine-n aloxone (SUBOXONE) 8-[address] 1 Film under the tongue daily 1 Film 01/08/2020 Active clonazePAM (KlonoPIN) 0.5 mg tablet 05/25/2020 Active metoprolol XL (TOPROL-XL) 100 mg 24 hr tablet TAKE 1 TABLET BY MOUTH ONCE DAILY DIRECTED FOR 30 DAYS 04/24/2020 Active citalopram (CeleXA) 40 mg tablet TAKE 1 TABLET BY MOUTH ONCE DAILY 10/03/2018 Active clonazePAM (KlonoPIN) 1 mg tablet Take 1 mg by mouth 3 (three) times a day 01/08/2019 Active Active Problems Problem Noted Date Diagnosed Date Opioid withdrawal 01/08/2020 Social History Tobacco Use Types Packs/Day Years Used Date Smoking Tobacco: Never Alcohol Use Standard Drinks/Week Comments Yes 0 (1 standard drink = 0.6 oz pur e alcohol) AUDIT-C Answer Date Recorded Q1: How often do you have a drink containing alc ohol? 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 Gender Identity Not on file Sexual Orientation Not on file Last Filed Vital Signs Vital Sign Reading Time Taken Comments Blood Pressure 145/76 06/04/2020 10:21 AM CDT Pulse 43 06/04/2020 10:21 AM CDT Temperature 36.3 C (97.4 F) 06/04/2020 10:21 AM CDT Respiratory Rate 18 01/08/2020 12:17 PM CDT Oxygen Saturation 96% 01/08/2020 12:17 PM CDT Inhaled Oxygen Concentration - - Weight 65.3 kg (144 lb) 06/04/2020 10:21 AM CDT Height 161.3 cm (5' 3.5 ) 06/04/2020 10:21 AM CD T Body Mass Index 25.11 06/04/2020 10:21 AM CDT Plan of Treatment Not on file Insurance [facility] MEDICARE [facility] MEDIC[facility] Address: [facility] [address] [place] [address] Care Teams Bilingual Instructor Relationship Specialty Start Date End Date Gorge Mead PA [address] [place] [address] PCP - General Internal Medicine 06/04/20 Alyssa Becerra Shirt Presser Addiction Medicine 10/20/20
--- OUTSIDE RECORDS SUMMARY | 2024-12-20 14:04 | XMS_ITS | Continuity of Care Document ---
Author Organization [facility] Address [address] [place] [address] [place] [address] Phone Care Team Providers Care Brokerage Clerk Name Role Phone Freddy Hoff MD Unavailable Unavailable Allergies, Adverse Reactions, Alerts Substance Reaction Status Criticality No Known Allergies Active No Inform ation Medications Medication Instructions Dosage Effective Dates (start - stop) Status Comments Klonopin 0.5 mg tablet take 1 tablet by oral route 3 times every day as needed 0.5 MG - Active PRN for anxiety, avoid driving or operate machines omeprazole 40 mg capsule,delayed release take 1 capsule by oral route every day before a meal 40 MG - Active Valtrex 1 gram tablet take 1 tablet by oral route every day 1000 MG - Active Vitamin D2 1,250 mcg (50,000 unit) capsule take one orally once per week - Active Cymbalta 60 mg capsule,delayed release take 1 capsule by oral route every day 60 MG - Active losartan 50 mg tablet take 1 tablet by oral route every day 50 MG - Active Crestor 10 mg tablet take 1 tablet by oral route every day 10 MG - Active meclizine 25 mg tablet take 1 tablet by oral route 2 times every day as needed as needed 25 MG - Active PRN for vertigo,, avoid driving or operate machines Problems Condition Type Effective Dates (start - stop) Clini barbara Status Comments No Known Problems Procedures Procedure Date OFFICE/OUTPATIENT VISIT, EST PREV VISIT, EST, 65 & OVER OFFICE/OUTPATIENT VISIT, EST OFFICE/OUTPATIENT VISIT, EST OFFICE/OUTPATIENT VISIT, EST OFFICE/OUTPATIENT VISIT, EST OFFICE/OUTPATIENT VISIT, EST OFFICE/OUTPATIENT VISIT, EST OFFICE/OUTPATIENT VISIT, EST OFFICE/OUTPATIENT VISIT, EST OFFICE/OUTPATIENT VISIT, EST OFFICE/OUTPATIENT VISIT, EST OFFICE/OUTPATIENT VISIT, EST OFFICE/OUTPATIENT VISIT, EST OFFICE/OUTPATIENT VISIT, EST OFFICE/OUTPATIENT VISIT, EST OFFICE/OUTPATIENT VISIT, EST OFFICE/OUTPATIENT VISIT, EST OFFICE/OUTPATIENT VISIT, EST OFFICE/OUTPATIENT VISIT, EST OFFICE/OUTPATIENT VISIT, EST PREV VISIT, EST, 65 & OVER OFFICE/OUTPATIENT VISIT, EST OFFICE/OUTPATIENT VISIT, NEW Advance Directives Directive Yes / No Effective Date File Name No Information Encounters Encounter Description Practice Location Reason(s) For Visit Diagnoses Date Provider Providers Copied on Encounter OFFICE/OUTPA TIENT VISIT, EST [facility], [address] [place], [address], tel:[phone] [facility] anxiety1 (chief complaint) cardiac1 (chief complaint) osteoporos is1 (chief complaint) GERD1 (chief complaint) Generalized Anxiety DisorderOsteoporosi sBradycardiaRenal diseaseGERD w/o esophagitis 5 Luis Eduardo Worthington [address], [place], [address] , [place]. tel:[phone] PREV VISIT, EST, 65 & OVER [facility], [address] [place], [address], [place] tel:[phone] [facility] physical (chief complaint) Encounter for general adult medical examination without abnormal findings 5 Luis Eduardo Worthington [address], [place], [place], [address] , [place]. tel:[phone] OFFICE/OUTPA TIENT VISIT, [facility], [address], [place], [place], [address], [place] tel:[phone] [facility] anxiety1 (chief complaint) osteoporos is1 (chief complaint) OsteoporosisGeneral ized Anxiety Disorder 4 Luis Eduardo Hayes. [address], [place], [place], [address] , [place]. tel:[phone] OFFICE/OUTPA TIENT VISIT, [facility], [address], [place], [place], [address], [place] tel:[phone] [facility] anxiety1 (chief complaint) HTN (chief complaint) osteoporos is1 (chief complaint) Essential (primary) hypertensionOsteopo rosisGeneralized Anxiety Disorder 4 Luis Eduardo Hayes. [address], [place], [place], [address] , [place]. tel:[phone] OFFICE/OUTPA TIENT VISIT, [facility], [address], [place], [place], [address], [place] tel:[phone] [facility] anxiety1 (chief complaint) HTN (chief complaint) kidney1 (chief complaint) Generalized Anxiety DisorderEssential (primary) hypertensionCyst of kidney, acquired 4 Luis Eduardo Hayes. [address], [place], [place], [address] , [place]. tel:[phone] OFFICE/OUTPA TIENT VISIT, [facility], [address], [place], [place], [address], [place] tel:[phone] [facility] HTN (chief complaint) dysphagia1 (chief complaint) osteoporos is. (chief complaint) Kidney diseaseDysphagiaOst eoporosisEssential (primary) hypertension 4 Luis Eduardo Hayes. [address], [place], [place], [address] , [place]. tel:[phone] OFFICE/OUTPA TIENT VISIT, [facility], [address], [place], [place], [address], [place] tel:[phone] [facility] dysphagia1 (chief complaint) anxiety1 (chief complaint) osteoporos is1 (chief complaint) OsteoporosisGeneral ized Anxiety DisorderDysphagia 4 Luis Eduardo Hayes. [address], [place], [place], [address] , [place]. tel:[phone] OFFICE/OUTPA TIENT VISIT, [facility], [address], [place], [place], [address], [place] tel:[phone] [facility] anxiety1 (chief complaint) HTN (chief complaint) osteoporos is1 (chief complaint) Essential (primary) hypertensionGeneral ized Anxiety DisorderOsteoporosi s 4 Luis Eduardo Hayes. [address], [place], [place], [address] , [place]. tel:[phone] OFFICE/OUTPA TIENT VISIT, [facility], [address], [place], [place], [address], [place] tel:[phone] [facility] anxiety1 (chief complaint) osteoporos is1 (chief complaint) HTN (chief complaint) GERD1 (chief complaint) Essential (primary) hypertensionGeneral ized Anxiety DisorderGERD w/o esophagitisMixed hyperlipidemiaOsteo porosis 4 Luis Eduardo Hayes. [address], [place], [place], [address] , [place]. [phone] OFFICE/OUTPA TIENT VISIT, [facility], [address], [place], [place], [address], [place] tel:[phone] [facility] osteoporos is1 (chief complaint) anxiety1 (chief complaint) HLP (chief complaint) HTN (chief complaint) GERD1 (chief complaint) Essential (primary) hypertensionMixed hyperlipidemiaGERD w/o esophagitisOsteopor osisGeneralized Anxiety Disorder 4 Luis Eduardo Hyaes. [address], [place], [place], [address] , [place]. tel:[phone] OFFICE/OUTPA TIENT VISIT, [facility], [address] [place], [address], [place] tel:[phone] [facility] anxiety1 (chief complaint) opoioid1 (chief complaint) HTN (chief complaint) bradycardi a1 (chief complaint) Generalized Anxiety DisorderEssential (primary) hypertensionBradyca rdiaOpioid dependence, in remissionMixed hyperlipidemia Apr-2 4 Hoff Freddy. [address], [place], [place], [address] , [place]. tel:[phone] OFFICE/OUTPA TIENT VISIT, [facility], [address] [place], [address], [place] tel:[phone] [facility] anxiety1 (chief complaint) HLP (chief complaint) bradycardi a1 (chief complaint) tinnitus1 (chief complaint) Generalized Anxiety DisorderMixed hyperlipidemiaBrady cardiaTinnitus, bilateral Apr-0 4 Hoff Freddy. [address], [place], [place], [address] , [place]. tel:[phone] OFFICE/OUTPA TIENT VISIT, [facility], [address] [place], [address], [place] tel:[phone] [facility] anxiety1 (chief complaint) HSV (chief complaint) HTN (chief complaint) vertigo1 (chief complaint) GERD1 (chief complaint) Essential (primary) hypertensionGERD w/o esophagitisHerpes simplex infectionGeneralize d Anxiety DisorderAural vertigo, bilateral Fe- 4 Hoff Freddy. [address], [place], [place], [address] , [place]. tel:[phone] OFFICE/OUTPA TIENT VISIT, [facility], [address], [place], [place], [address], [place] tel:[phone] [facility] HTN (chief complaint) vertigo1 (chief complaint) chest tightness1 (chief complaint) HLP (chief complaint) Essential (primary) hypertensionGeneral ized Anxiety DisorderBradycardia Mixed hyperlipidemiaImpac braeden cerumen, bilateralAnt chest-wall pain 4 Luis Eduardo Hayes. [address], [place], [place], [address] , [place]. tel:[phone] OFFICE/OUTPA TIENT VISIT, [facility], [address], [place], [place], [address], [place] tel:[phone] [facility] HTN (chief complaint) HLP (chief complaint) anxiety1 (chief complaint) Generalized Anxiety DisorderEssential (primary) hypertensionBradyca rdiaMixed hyperlipidemia 4 Luis Eduardo Hayes. [address], [place], [place], [address] , [place]. tel:[phone] OFFICE/OUTPA TIENT VISIT, [facility], [address], [place], [place], [address], [place] tel:[phone] [facility] anxiety1 (chief complaint) GERD1 (chief complaint) GERD w/o esophagitisGenerali zed Anxiety DisorderPolyp of colon 3 Luis Eduardo Hayes. [address], [place], [place], [address] , [place]. tel:[phone] OFFICE/OUTPA TIENT VISIT, [facility], [address], [place], [place], [address], [place] tel:[phone] [facility] anxiety1 (chief complaint) GERD1 (chief complaint) Generalized Anxiety DisorderGERD w/o esophagitis 3 Luis Eduardo Hayes. [address], [place], [place], [address] , [place]. tel:[phone] OFFICE/OUTPA TIENT VISIT, [facility], [address], [address], [place] tel:[phone] [facility] GERD1 (chief complaint) HTN (chief complaint) GERD w/o esophagitisEssentia l (primary) hypertensionChange in bowel habit 3 Luis Eduardo Hayes. [address], [place], [place], [address] , [place]. tel:[phone] OFFICE/OUTPA TIENT VISIT, [facility], [address], [place], [place], [address], [place] tel:[phone] [facility] anxiety1 (chief complaint) Generalized Anxiety Disorder 3 Luis Eduardo Hayes. [address], [place], [place], [address] , [place]. tel:[phone] OFFICE/OUTPA TIENT VISIT, [facility], [address], [place], [place], [address], [place] tel:[phone] [facility] HSV1 (chief complaint) Hep C (chief complaint) osteoporos is1 (chief complaint) renal1 (chief complaint) HLP (chief complaint) anxiety1 (chief complaint) Herpes simplex infectionHepatitis COsteoporosisRenal diseaseMixed hyperlipidemiaGener alized Anxiety DisorderItch 3 Luis Eduardo Hayes. [address], [place], [place], [address] , [place]. tel:[phone] OFFICE/OUTPA TIENT VISIT, [facility], [address], [place], [place], [address], [place] tel:[phone] [facility] anxiety1 (chief complaint) osteoporos is1 (chief complaint) sinus1 (chief complaint) Generalized Anxiety DisorderOsteoporosi sAcute sinusitisInconclusi ve mammogram 3 Luis Eduardo Hayes. [address], [place], [place], [address] , [place]. tel:[phone] PREV VISIT, EST, 65 & OVER [facility], [address], [place], [place], [address], [place] tel:[phone] [facility] anxiety1 (chief complaint) HTN (chief complaint) HSV1 (chief complaint) Essential (primary) hypertensionGeneral ized Anxiety DisorderHerpes simplex infection NOSEncounter for general adult medical exam w abnormal findingsOpioid dependence, uncomplicated 3 Luis Eduardo Hayes. [address], [place], [place], [address] , [place]. tel:[phone] OFFICE/OUTPA TIENT VISIT, [facility], [address], [place], [place], [address], [place] tel:[phone] [facility] anxiety1 (chief complaint) HTN (chief complaint) opioid1 (chief complaint) Essential (primary) hypertensionGeneral ized Anxiety DisorderOpioid dependence, uncomplicated 3 Luis Eduardo Hayes. [address], [place], [place], [address] , [place]. tel:[phone] Family History Family Member Type Diagnosis Age At Onset Father Problem of lung CA 70 Mother Problem Coronary artery disease 59 Brother Problem OD on drug and 24 Payers Payer name Insurance type Covered republican ID Authoriza tilenora(s) [facility] [id number] Social History Type Description Quantity Date Captured Comments Alcohol Use Details No Caffeine Use Details Unknown Tobacco Use Status Current non-smoker Smoking Status Never smoker Sex Female Vital Signs Date / Time: Height Weight BMI Pulse Rate Blood Pressure Temperature Respiratory Rate Body Surface Area Head Circumference BMI percentile Pulse Ox Inhaled Ox 11:10 AM 63.00 in 151.60 lbs 26.8 5 kg/m eter (2) 62 /min 120/70 mm[Hg] 97.8 F 16 /min Chief Complaint And Reason For Visit From encounter dated '12/03/2024 11:04'. anxiety1 (chief complaint). Description: Pt has chronic anxiety and depression. Pt started cymbaltalast month and her mood is better now with cymbalta. Pt denies any suicidal or homicidal thought .Pt denies any crying spells. cardiac1 (chief complaint). Description: Pt has bradycardia Pt is seeing cardiology who ordered cardiac echo for her. Pt is off metoprolol. Pt denies any chest pain or sob osteoporosis1 (chief complaint). Description: Pt has osteoporosis. Pt wants to see a new pastry artist which is closer to her home. Pt is on calcium and D GERD1 (chief complaint). Description: Pt has chronic GERD Pt takes omeprazole PRn only. Pt had benign EGD Plan Of Treatment Date Type Action Status Referral Ordered: HAYDEE MEDINA -Allopathic & Osteopathic Physicians : Internal Medicine : Rheumatology (related to Osteoporosis) ordered Referral Referred To: HAYDEE MEDINA [address] [place], [place], [id number] Ordered: Referrals: Allopathic & Osteopathic Physicians : Internal Medicine : Rheumatology. HAYDEE MEDINA. Evaluate and treat ordered Referral Ordered: [facility] ordered Referral Referred To: Rosario Perry MD [address] [facility]
[address] [place], [place], [address] Ordered: Referrals: Rosario Perry MD. Evaluate and treat ordered Referral Ordered: Otolaryngology (related to Impacted cerumen, bilateral) ordered Referral Ordered: Referrals: Otolaryngology. Evaluate and treat ordered Referral Referred To: Gerardo Malave [address] [place] [address], [phone] Ordered: Referrals: Gerardo Malave. Evaluate and treat ordered Referral Ordered: COLONOSCOPY AND BIOPSY ordered Referral Ordered: DXA BONE DENSITY, AXIAL ordered Referral Ordered: MAMMOGRAM, SCREENING ordered Appointment Alyssa Barksdale BOOKED History Of Present Illness Encounter Date Complaint History Of Prese nt Illness anxiety1 Pt has chronic a nxiety and depression. Pt started cymbalta last month and her mood is better now with cymbalta. Pt denies any suicidal or homicidal thought .Pt denies any crying spells. cardiac1 Pt has bradycard ia Pt is seeing cardiology who ordered cardiac echo for her. Pt is off metoprolol. Pt denies any chest pain or sob osteoporosis1 Pt has osteoporo sis. Pt wants to see a new pastry artist which is closer to her home. Pt is on calcium and D GERD1 Pt has chronic G ERD Pt takes omeprazole PRn only. Pt had benign EGD physical Pt needs annual physical Pt has chronic anxiety and depression Pt takes cymbalta and klonopin pRN and doing ok. she denies any suicidal or homicidal thought .Pt denies any crying spells. Pt has osteoporosis Pt will see rheumatology soon. Pt is on calcium and D. Pt has intermittent GERD Pt is on omeprazole PRN. pt sees cardiology and she is on losartan for HTN. Pt denies any chest pain. Pt denies any other complaints osteoporosis1 Pt has osteoporo sis Pt has adrien with rheumatology next week anxiety1 Pt has chronic a nxiety and depression. Pt started cymbalta last month and her mood is better now with cymbalta. Pt denies any suicidal or homicidal thought .Pt denies any crying spells. anxiety1 Pt has chronic a nxiety and depression Pt takes celexa and klonopin PRN and she feels more anxious and depressed lately. t denies any suicidal or homicidal thought .Pt denies any crying spells. HTN Pt has HTN. Her bp is treading low and her cardiology changed to losartan 50 mg daily. Pt is off losartan/hctz. her bp is ok. Pt denies any dizziness osteoporosis1 Pt has osteoporo sis. Pt is seeing rheumatology and she has not started infusion yet. Pt was told to try fosamax first but she has not received a script yet anxiety1 Pt has chronic a nxiety and depression Pt takes celexa and klonopin PRN and dong ok Pt denies any suicidal or homicidal thought .Pt denies any crying spells. HTN Pt takes losarta n/hctz and she is off norvasc and she denies any dizziness and her bp at home is around 120/80 kidney1 pt has borderlin e low renal function and she is seeing nephrology next week Pt had kidney ultrasound done which showed minimally complex cyst of the left kidney only HTN Pt has HTN. Pt t akes losartan/hctz and norvasc and her bp is running low at home and she has been feeling dizzy as well, Pt also sometimes feels dizzy when she stands up. her bp is around 110 systolic at home . Pt denies any chest pain or sob dysphagia1 Pt states that d ysphagia resolved with omeprazole 40 mg daily Pt does have GERD osteoporosis. Pt has osteoporo sis Pt takes calcium and D and she is on weight bearing exercise Pt saw rheumatology for infusion and she was referred to radiation protection engineer due to renal disease. anxiety1 Pt has chronic a nxiety and depression Pt takes celexa and klonopin PRN and doing ok Pt denies any suicidal or homicidal thought Pt denies any crying spells osteoporosis1 P t has osteopor osis. Pt takes calcium and vitamin D Pt saw rheumatology and is being worked up for infusion therapy. dysphagia1 Pt notices mild dysphagia recently Pt denies any drooling, Pt has chronic GERD but she is not taking omeprazole on the daily basis. Pt denies any sore throat. osteoporosis1 Pt has osteoporo sis. Pt takes calcium and D and she is working on weight bearing exercise Pt canceled hr adrien with dr. Perry due to distance of her office HTN Pt has HTN Pt ta kes losartan/hctz and norvasc and her bp is ok. anxiety1 Pt has chronic a nxiety and depression Pt takes celexa and klonopin PRN and doing ok Pt denies any suicidal or homicidal thought ,pt denies any crying spells anxiety1 Pt has chronic a nxiety and depression Pt takes celexa and klonopin PRN and doing ok Pt denies any suicidal or homicidal thought ,pt denies any crying spells osteoporosis1 Pt has osteoporo sis .Pt takes calcium and D and is working on weight bearing exercise. Pt has adrien with rheumatology in two days HTN Pt has HTn pt ta kes norvasc 10 mg and she has not been taking losartan/hctz and her bp is borderline Pt denies any chest pain or headache GERD1 Pt has intermitt ent GERD. Pt only takes omeprazole PRN now and doing ok GERD1 Pt denies any dy sphagia or any GERD .Her EGD was benign Pt has not been taking omeprazole HTN Pt is on losarta n/hctz and norvasc 5 mg and her bp is improving but still high Pt denies any chest pain or headache HLP pt has HLP Pt is crestor. Her lipid profile is ok now per cardiology. Pt denies any myalgia anxiety1 Pt has chronic a nxiety and depression Pt takes celexa and klonopin PRN and doing ok Pt denies any suicidal or homicidal thought ,pt denies any crying spells osteoporosis1 Pt has osteoporo sis Pt takes calcium and D Pt does not want fosamax orally anxiety1 Pt has chronic a nxiety and depression Pt takes celexa and klonopin PRN and doing ok Pt denies any suicidal or homicidal thought Pt denies any crying spells . opoioid1 Pt has history o f opioid dependency Pt is trying to get off suboxone and she is on lower dose and she feels some anxiety with lower dose HTN Pt has HTN and b radycardia pt has been off metoprolol and she is on Norvasc 2.5 mg and her bp is high Pt denies any chest pain or headache Pt denies any swelling. pt also takes losartan/hctz bradycardia1 Pt has history o f bradycardia. pt has been off metoprolol and her HR is up now Pt denies any chest pain or dizziness or sob HLP Pt has HLP Pt is on crestor Pt denies any myalgia Pt needs crestor refilled. anxiety1 Pt has chronic a nxiety and depression Pt takes celexa and klonopin PRN and doing ok Pt denies any suicidal or homicidal thought Pt denies any crying spells . bradycardia1 Pt has chronic a symptomatic bradycardia Pt denies any chest pain or sob. Pt saw cardiology and she is being weaned off on toprol. Pt is on norvasc 2.5 mg daily now. tinnitus1 Pt has bilateral tinnitus with hearing loss and also vertigo. Pt saw ENT and had both ear cerumen removed and she was referred to vestibular PT anxiety1 Pt has chronic a nxiety and depression Pt takes celexa and klonopin PRN and doing ok Pt needs klonopin refilled Pt denies any suicidal or homicidal thought Pt denies any crying spells. GERD1 Pt has chronic G ERD. Pt is on omeprazole 20 mg daily Pt never doubled up the dose. Pt states that her GERD is well controlled. HSV Pt has genital h erpes Pt takes valtrex. Pt denies any outbreak. HTN Pt has HTN Pt ta kes losartan/hctz and toprol. Pt has not been checking her bp at home Pt has not had any chest pain Pt has adrien with cardiology next week. vertigo1 Pt has persisten t vertigo. Pt states that meclizine does help Pt has adrien with ENT in 3 weeks. HTN Pt has HTN Pt ta kes toprol 50 mg daily and losartan/hctz Her bp is borderline high today Pt denies any headache vertigo1 Pt c/o acute ons et of vertigo with bilateral tinnitus for almost two weeks Pt denies any vision change Pt notices vertigo when she turns her head sometimes Pt denies any headache or vision change. Pt denies any orthostasis Pt denies any headache. Pt c/o bilateral muffling both ear for several weeks Pt denies any palpitation or chest pain chest tightness1 Pt notices some midsternal chest tightness when she lies down at night for several days Pt has GERD Pt is on omeprazole. Pt denies any exertional chest pain Pt denies any saturnino chest pain or palpitation Pt does have bradycardia. Pt has not heard from cardiology yet. HLP Pt has HLP Pt [facility] crestor last month pt denies any myalgia HTN Pt has HTN Pt ta kes metoprolol and hctz. Her bp is high and her HR is slow. pt denies any chest pain or headache or palpitation or dizziness or sob HLP Pt has HLP Pt is working on diet anxiety1 Pt has chronic a nxiety and depression Pt takes celexa and klonopin PRn and she feels very anxious and depressed lately. Her brother just >Pt has been having panic attacks with severe anxiety .Pt denies any suicidal or homicidal thought Pt denies any crying spells anxiety1 Pt has chronic a nxiety and depression Pt takes celexa and klonopin PRN and doing ok Pt denies any suicidal or homicidal thought Pt denies any crying spells GERD1 Pt has chronic G ERD Pt had EGD and colonoscopy done which showed HH and tubular adenoma Pt doing ok with omeprazole. Pt denies any dysphagia or neck pain GERD Pt has intermitt ent GERD with dysphagia with history of gastric ulcer .Pt started omeprazole last month but has not helped much about the dysphagia Pt denies any abd pain anxiety1 Pt has chronic a nxiety and depression Pt takes celexa and klonopin pRN and doing ok Pt denies any suicidal or homicidal thought. Pt denies any crying spells. HTN Pt boykin HTN pt jose david es metoprolol and hctz and her bp is stable. she does not have chest pain Pt does not have any know CAD GERD1 Pt has intermitt ent dysphagia and food stuck in the middle chest area for several months. Pt does have intermittent GERD Pt had gastric ulcer on EGD from 2019. pt is not on any anti acid Pt denies any nausea, vomiting anxiety1 Pt has chronic a nxiety and depression Pt takes celexa and klonopin pRN and doing ok Pt denies any suicidal or homicidal thought. Pt denies any crying spells. renal1 Pt has borderlin e low real. pt has normal UO HLP Pt has HLP Pt is not on any diet HSV1 Pt has active HS V i and II. Pt has frequent oral and genital outbreaks. pt has a boyfriend but she is not sexually active but she is not sure if she will have sex soon. pt denies any acute symptoms or outbreak Hep C Pt has hep C, wh ich was treated. Pt denies any abd pain or jaundice. osteoporosis1 Pt boykin osteoporos is. pt has low D pt denies fracture. Pt has diffuse itching for two months, worse at night ,Pt denies any sick contact .Pt denies any rash Pt states that she itches around all over body, between fingers, pubic area, the itching is worse at night .Pt denies any visible rash anxiety Pt has chronic a nxiety and depression Pt takes celexa and klonopin and doing ok Pt denies any suicidal or homicidal thought Pt denies any crying spells anxiety1 Pt has chronic a nxiety and depression Pt takes celexa and klonopin and doing ok Pt denies any suicidal or homicidal thought Pt denies any crying spells sinus1 Pt c/o productiv e cough with yellow phlegm and sinus congestion with postnasal drainage for several days pt c./o sinus pressure Pt denies any sob or headache or fever. Pt states that she usually gets sinus infection yearly osteoporosis1 Pt has osteoporo sis. 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 HTN Pt has HTN Pt ta kes metoprolol and hctz and bp stable. Pt denies any chest pain or headache anxiety1 Pt has chronic a nxiety and depression Pt takes celexa and klonopin PRN and doing ok Pt denies any suicidal or homicidal thought Pt denies any crying spells. opioid1 Pt has history o f opioid dependency and she is on suboxone and she is in the process of weaning down on suboxone and she feels very anxious due to above. Pt states that lower dose of klonopin also made the process very difficult HTN Pt has HTN Pt ta kes metoprolol and hctz and her bp is high. Pt states that she feels very anxious. Pt denies any chest pain or headache. anxiety1 Pt has chronic a nxiety and depression Pt takes celexa and klonopin PRN and she feels very anxious Pt has been taking klonopin 0.5 mg TID for long time but her physician abruptly decreased klonopin to BID and she feels very anxious due to the decreasing in klonopin quality Instructions Date Instruction Additional Infor mation No Information Assessments Type Assessment Date assessment Generalized Anxiety Disorder Nov assessment Osteoporosis assessment Bradycardia assessment Renal disease assessment GERD w/o esophagitis Mental Status Date Cognitive Assessment Orientation - [place] ed to time, place, person, situation.
--- OUTSIDE RECORDS SUMMARY | 2024-12-20 14:04 | XMS_ITS | Clinical Summary ---
Author Organization [facility] Address [address] [place] [address] Phone Care Team Providers Care Lapel Stitcher Name Role Phone Daryl Menendez MD Unavailable [phone] Allergies Active Allergy Reactions Criticality Noted Date Comments Baclofen Other (see Comments) 09/25/2018 headache Medications fluticasone (FLONASE) 50 MCG/ACT NA SUSP 1-2 Sprays by Nasal route daily as needed. Use in each nostril as directed. Active acetaminophen (TYLENOL) 325 MG Tablet Take 650 mg by mouth every 4 hours as needed. Active Loratadine-Pseudo ephedrine (CLARITIN-D 24 HOUR PO) Take 1 Tab by mouth as needed. Active ferrous sulfate 325 (65 Fe) MG Tablet Take 1 Tab by mouth daily. 90 Tab 3 8 Active buprenorphine 2 MG SL Tablet 1 mg by Sublingual route 2 times daily. 0 8 Active citalopram (CELEXA) 40 MG TabletIndications :Anxiety,Depressi on, unspecified depression type TAKE 1 TABLET BY MOUTH ONCE DAILY 90 Tab 3 9 Active pantoprazole (PROTONIX) 40 MG Tablet Delayed Response Take 1 Tab by mouth 2 times daily. 60 Tab 2 9 Active clonazePAM (KLONOPIN) 1 MG TabletIndications :Opioid withdrawal (HCC),Anxiety Take 1 Tab by mouth 3 times daily. 90 Tab 9 Active hydroCHLOROthiazi de 12.5 MG TabletIndications :Essential hypertension Take 1 Tab by mouth daily. 90 Tab 9 Active metoprolol Succinate (TOPROL-XL) 100 MG TABLET SR 24 HRIndications:Ess ential hypertension TAKE 1 TABLET BY MOUTH ONCE DAILY 90 Tab 1 0 Active Active Problems Problem Noted Date Diagnosed Date Stage 3 chronic kidney disease 03/22/2019 Cervical radiculopathy 12/03/2018 Cervical pain 01/30/2017 High blood pressure 04/11/2016 Anxiety 09/11/2015 Immunizations Immunization Administration Dates Next Due Tetanus Toxoid, Unspecified Formulation 10/30/19 15 Family History Medical History Relation Name Comments Asthma Brother Gee Cancer Father Gee lung Rheumatoid Arthritis Maternal Grandmother Diabetes Maternal Uncle 1 Bill Hypertension Maternal Uncle 1 Bill Cancer Mother Álvaro stomach Heart Attack Mother Álvaro High Cholesterol Mother Álvaro Hypertension Mother Álvaro Migraines Mother Álvaro Stroke Mother Álvaro No Known Problems Sister Vivian murdered Breast Cancer Neg Hx Ovarian Cancer Neg Hx Relation Name Status Comments Brother Gee Alive Father Gee Maternal Grandfather Maternal Grandmother Maternal Uncle 1 Bill Maternal Uncle 2 Vicente Mother Álvaro Paternal Aunt had 12 hx unknown Alive Paternal Grandfather Paternal Grandmother Sister Vivian Social History Tobacco Use Types Packs/Day Years Used Date Smoking Tobacco: Never Smokeless Tobacco: Never Tobacco Cessation:Counseling Given: No Alcohol Use Standard Drinks/Week Comments No 0 (1 standard drink = 0.6 oz pur e alcohol) PHQ-2 Answer Date Recorded PHQ-2 Score 6 07/13/2019 Sexually Active Control Partners Comments Not Currently Comments No Sex and Gender Information Value Date Recorded Sex Assigned at Not on file Legal Sex Female 2:33 PM CDT Gender Identity Not on file Sexual Orientation Not on file Last Filed Vital Signs Vital Sign Reading Time Taken Comments Blood Pressure 118/70 03/22/2019 9:06 AM CDT Pulse 60 03/22/2019 9:06 AM CDT Temperature 37.1 C (98.8 F) 12/27/2018 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 CLERK Respiratory Rate 16 03/22/2019 9:06 AM CDT Oxygen Saturation 97% 12/27/2018 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 CLERK Inhaled Oxygen Concentration - - Weight 67.6 kg (149 lb) 03/22/2019 9:06 AM CDT Height 158.8 cm (5' 2.5 ) 03/22/2019 9:06 AM CDT Body Mass Index 26.82 03/22/2019 9:06 AM CDT Plan of Treatment Health Maintenance Due Date Last Done Comments DEXA Bone Density 1955 Hepatitis C Virus (HCV) Screening 1955 TdaP Immunization 1955 Pneumococcal Immunization (5 0+ years) (1 of 2 - PCV) 1975 Cologuard 2006 Immunochemical Fecal Occult Blood 2006 Zoster Immunization (1 of 2) 2006 Influenza Immunization (#1) 2024 SARS-COV-2 Immunization ( - season) 2024 Colonoscopy 11/07/2028 11/07/2018 Colorectal Cancer Screening 11/07/2028 Respiratory Syncytial Virus (RSV) Immunization (Adult) (1 - 1-dose 75+ series) 2031 11/07/2018 Mammogram Discontinued 03/22/2018 Hepatitis B Immunization Aged Out No longer eligible based on patient's age to complete this topic Meningococcal Immunization (ACWY) Aged Out No longer eligible based on patient's age to complete this topic Rotavirus Immunization Aged Out No lo nger eligible based on patient's age to complete this topic Procedures Procedure Name Priority Date/Time Associated Diagnosis Comments RADHA SCREENING BILATERAL DIGITAL W CAD W THANG Routine 03/22/2018 1:47 PM CDT Visit for screening mammogram from Last 3 Months or Most Recently Relevant to Health Maintenance Results * RADHA SCREENING BILATERAL DIGITAL W CAD W THANG (03/22/2018 1:47 PM CDT) Anatomical Region Laterality Modality breast Bilateral Mammography 03/22/2018 1:47 PM CDT Impressions 03/22/2018 3:25 PM CDT IMPRESSION: Left breast asymmetry. RECOMMENDATION: Spot compression imaging and possible ultrasound. BIRADS: 0 - ADDITIONAL IMAGING RECOMMENDED [facility] HAVE REQUESTED THE FOLLOWING STATEMENT BE INCLUDED FOR YOUR BENEFIT: [facility] policy is that [facility] staff will contact the patient regarding recommendations from this exam. Narrative 03/22/2018 3:25 PM CDT DICTATING PHYSICIAN: Dano Guthrie MD EXAM: Bilateral screening Mammography with CAD and Tomosynthesis dated 03/22/2018 CLINICAL HISTORY: Scheduled screening mammogram. COMPARISON: None. FINDINGS: Standard and 3-D tomographic mammographic views were obtained. The exam was interpreted with the use of CAD. The breast tissue is composed of predominantly fatty tissue. There is asymmetry in the anterior medial left breast. Spot compression imaging and possible ultrasound are recommended for further evaluation. No suspicious calcifications are identified in either breast. No masses are identified in the opposite breast. Procedure Note Dano Guthrie MD - 03/22/2018 DICTATING PHYSICIAN: Dano Guthrie MD EXAM: Bilateral screening Mammography with CAD and Tomosynthesis dated03/22/2018 CLINICAL HISTORY: Scheduled screening mammogram. COMPARISON: None. FINDINGS: Standard and 3-D tomographic mammographic views were obtained. The examwas interpreted with the use of CAD. The breast tissue is composed ofpredominantly fatty tissue. There is asymmetry in the anterior medialleft breast. Spot compression imaging and possible ultrasound arerecommended for further evaluation. No suspicious calcifications areidentified in either breast. No masses are identified in the oppositebreast. IMPRESSION: Left breast asymmetry. RECOMMENDATION: Spot compression imaging and possible ultrasound. BIRADS: 0 - ADDITIONAL IMAGING RECOMMENDED [facility] HAVE REQUESTED THE FOLLOWING STATEMENT BE INCLUDED FORYOUR BENEFIT: [facility] policy is that [facility] staff will contact the patientregarding recommendations from this exam. Vahid Claros MD IMG MAMMO ORDERABLES Final R esult from Last 3 Months or Most Recently Relevant to Health Maintenance Insurance [place]ID [place] Care Teams Lapel Stitcher Relationship Specialty Start Date End Date Daryl Menendez MD Gastroenterology 11/20/17
--- OUTSIDE RECORDS SUMMARY | 2024-12-20 14:04 | XMS_ITS | Referral Summary ---
Author Organization [facility] Address [address] [place] [address] Care Team Providers Care Railways Assistant Name Role Phone Demetrio Sotelo MD Primary [...] Active fluticasone (FLONASE) 50 MCG/ACT nasal spray [place] 1-2 sprays in each nostril as directed. [...] Diagnosed Date Controlled substance agreement signed 01/21/2019 Social History Tobacco Use Types Packs/Day Years [...] 05/23/2019 4:58 PM CDT Plan of Treatment Not on file Care Teams Railways Assistant Relationship Specialty Start Date End Date Demetrio Sotelo MD PCP - General Family Practice 01/03/19
--- OUTSIDE RECORDS SUMMARY | 2024-12-20 14:04 | XMS_ITS | Clinical Summary ---
Author Organization [facility] Address [address] [place] [address] Care Team Providers Care Hypo Splasher Name Role Phone Gorge Mead Primary Care [...] Noted Date Diagnosed Date Opioid withdrawal 01/08/2020 Surgical History Surgery Date Site/Laterality Comments KNEE SURGERY Medical History Medical History Date Comments Hypertension Anxiety Depression Peptic ulceration Infectious viral hepatitis Anemia Family History Medical History Relation Name Comments Cancer Other Heart disease Other Hypertension Other Lung disease Other Stroke Other Relation Name Status Comments Other Social History Tobacco Use [...] on file 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
--- OUTSIDE RECORDS SUMMARY | 2024-12-20 14:04 | XMS_ITS ---
Author Organization [facility] Address [address] [facility] [address] [place] [address] Care Team Providers Care Laminator Preforms Name Role Phone Luis Eduardo YOUNGBLOOD, Freddy Primary Care Provider Rosario Porter [phone] REASON FOR VISIT yd,f/u,cc Encounters Encounter Location Date Provider Diagnosis [facility] [address] [facility] [address] [place] [address] 10/15/2024 Rosario Gusman Plan Of Treatment No Information Progress Notes * Alyssa SMITH ADOB:1954 (69 yo F)Acc No.[id number]:10/15/2024 Progress Notes Patient: Alyssa BURLESON Provider: Quyen GUSMAN MD :1955 A ge:69 Y S ex:Female Date:10/15/2024 Address:[address] [place] [address] [address] Pcp:Freddy Hoff MD Subjective: * Chief Complaints: * 1 . Yd,f/u,cc. * Medical History: Objective: * Vitals: Assessment: Plan: * Treatment: * Billing Information: * Visit Code: * Procedure Codes: * Electronic signature of Rosario Gusman MD on 12/20/2024 at 02:04 PM WIDE PIECE GOODS INSPECTOR Sign off status: Pending * Provider: Quyen GUSMAN MD Date: 1 12/16/2023 Generated for Printi ng/Faxing/eTransmitting on: 0 12/20/2024 02:04 PM WIDE PIECE GOODS INSPECTOR
--- OUTSIDE RECORDS SUMMARY | 2024-12-20 14:04 | XMS_ITS ---
Author Organization [facility] Address [address] [facility] [address] [place] [address] Care Team Providers Care Matrix Bath Attendant Name Role Phone Freddy Hoff MD Primary Care Provider Rosario Porter [phone] REASON FOR VISIT renal referral Encounters Encounter Location Date Provider Diagnosis [facility] [address] [facility] [address] [place] [address] 06/23/2024 Rosario Perry Plan Of Treatment No Information Progress Notes * Alyssa SMITH ADOB:1954 (68 yo F)Acc No.[id number]:06/23/2024 Patient: Jackson CLYDEMITZYAlyssa :1955 A ge:68 Y S ex:Female Address:[address] [place] [address] [address], [place], [address] * true * Date: Generated for Mitchell solis/Anthony/eTransmitting on: 0 12/20/2024 02:03 PM FERN GATHERER
== END 2024-12-20 14:01 | disposition home or self-care (01) ==
LOC: ANHCARD 14:02
PROVIDERS: PCP Emergency Medicine; Visit Provider Internal Medicine Cardiovascular Disease
DX: R06.09 Other forms of dyspnea (principal); I08.1 Rheumatic disorders of both mitral and tricuspid valves
CPT/HCPCS: 93306; C8929

== ENCOUNTER 2025-06-05 08:51 | Outpatient (CLI) | payer MEDICARE, MEDICAID, SELFPAY ==
--- OUTSIDE RECORDS SUMMARY | 2025-06-05 08:57 | XMS_ITS ---
Author Organization [facility] Address [address] [facility] [address], [place] [address] Care Team Providers Care Office Mover Name Role Phone Freddy Hoff MD Primary Care Provider UnavailRosario Orourke Unavailable [phone] REASON FOR VISIT yd,f/u,cc Medications Medication SIG (Take, Route, Frequency, Duration) Notes Start Date End Date Status Brixadi Active Rosuvastatin Calcium Active amLODIPine Besylate 10 MG 1 tablet Orall y Once a day; Duration: 30 day(s) Active CeleXA 20 MG 1 tablet Orally Once a day; Duration: 30 day(s) Active Encounters Encounter Location Date Provider Diagnosis [facility] [address] [facility] [address], [place] [address] 10/28/2024 Rosario Gusman Plan Of Treatment No Information Progress Notes * Alyssa SMITH ADOB:1954 (69 yo F)Acc No.[id number]:10/28/2024 Progress Notes Patient: Alyssa BURLESON Appointment Provider: Quyen GUSMAN MD :1955 A ge:69 Y S ex:Female Date:10/28/2024 Address:[address] [place] [address] [address] Pcp:Freddy Hoff MD Subjective: * Chief Complaints: [...] Electronic signature of Rosario Gusman MD on 06/05/2025 at 08:57 AM CDT Sign off status: Pending * Appointment Provider: Quyen GUSMAN MD Date: 1 Generated for Mitchell solis/Anthony/Gianfranco on: 0 06/05/2025 08:57 AM CDT
--- OUTSIDE RECORDS SUMMARY | 2025-06-05 08:57 | XMS_ITS | Patient Health Record ---
Author Organization [facility] Address [address] [place] [address] Care Team Providers Care Grants Assistant Name Role Phone Chelsea Sooosorio Primary Care Provider [phone] Reason For Referral No Information Medications Medication SIG (Take, Route, Frequency, Duration) Notes Start Date End Date Status Buprenorphine HCl-Naloxone H Cl 8-2 MG 1 film under the tongue and allow to dissolve Sublingual Once a day; Duration: 28 days 01/09/2020 Active Zubsolv 8.6-2.1 MG 1 tablet under the tongue and allow to dissolve Sublingual Once a day; Duration: 28 days 04/24/2020 Active CeleXA 40 MG 0.5 tablet Orally Once a day; Duration: 30 day(s) Active Zubsolv 8.6-2.1 MG 1 tablet under the tongue and allow to dissolve Sublingual Once a day; Duration: 28 days 04/24/2020 Active Metoprolol Succinate 100 MG as directed Orally Active hydroCHLOROthiazide 12.5 MG 1 capsule in the morning Orally Once a day; Duration: 30 day(s) Active Social History Sex Assigned [...] GED 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 Stress is when someone feels tense, nervous, anxious, or can\t sleep at night because their mind is troubled Very much In the past year have you sp ent more than 2 nights in a row in a usp, skilled nursing, usp center, or juvenile correctional facility? No Are [...] Status W/U Status Risk Notes Problem Opioid use disorder, severe (F11.20) Active confirmed Problem Opioid use disorder (5199398397) Opioid use disorder (F11.99) Active confirmed Plan Of Treatment No Information Insurance Providers Payer Name Payer Address Payer Phone Subscriber Number Group Number Insured Name Patient Relationship to Insured Coverage Start Date Coverage End Date [address] [id number] Alyssa Barksdale Self - patient is the insured 0 Medical (General) History Medical History History ICD Code Opioid use disorder Surgical History Surgery Date(Month/Year)
--- OUTSIDE RECORDS SUMMARY | 2025-06-05 08:57 | XMS_ITS ---
Author Organization [facility] Address [address] [facility] [address] [place] [address] Care Team Providers Care Moth Exterminator Name Role Phone Luis Eduardo YOUNGBLOOD, Freddy Primary Care Provider Rosario Porter [phone] REASON FOR VISIT yd,f/u,cc Encounters Encounter Location Date Provider Diagnosis [facility] [address] [facility] [address] [place] [address] 10/15/2024 Rosario Gusman Plan Of Treatment No Information Progress Notes * Alyssa SMITH ADOB:1954 (69 yo F)Acc No.[id number]:10/15/2024 Progress Notes Patient: Alyssa BURLESON Appointment Provider: Quyen GUSMAN MD :1955 A ge:69 Y S ex:Female Date:10/15/2024 Address:[address] [place] [address] [address] Pcp:Freddy Hoff MD Subjective: * Chief Complaints: * 1 . Yd,f/u,cc. * Medical History: Objective: * Vitals: Assessment: Plan: * Treatment: * Billing Information: * Visit Code: * Procedure Codes: * Electronic signature of Rosario Gusman MD on 06/05/2025 at 08:57 AM CDT Sign off status: Pending * Appointment Provider: Quyne GUSMAN MD Date: 1 12/16/2023 Generated for Mitchell solis/Anthony/eTransmitting on: 0 06/05/2025 08:57 AM CDT
--- OUTSIDE RECORDS SUMMARY | 2025-06-05 08:57 | XMS_ITS | Clinical Summary ---
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
--- OUTSIDE RECORDS SUMMARY | 2025-06-05 08:57 | XMS_ITS | Patient Health Record ---
Author Organization [facility] waqar Address [address] [place] [address] Care Team Providers Care Knitting Machine Mechanic Name Role Phone Luis Eduardo YOUNGBLOOD, Freddy Primary Care Provider Jamil PerryRosario Unavailable [phone] Allergies No Known Allergies Results Component Value Reference Range Notes eGFR Reviewed date:06/20/2024 04:58:56 PM Interpretation: Performing Lab:[facility] , [address] [address] Notes/Report: eGFR 30 >=60 mL/min/1.73 m2 Interpretive [...] Sites) Reviewed date:06/20/2024 12:18:26 PM Interpretation: Performing Lab:[facility] , [address] [place] [id number] Notes/Report: WBC, Ur 6-10 0-5 /HPF RBC, Ur 0-2 0-2 /HPF Epithl Squam, Ur 1-5 0-5 /HPF Bacteria, Ur Trace Culture reflex comment See Below Refle x conditions for urine culture (WBC >10) not met. Epithl Transitional Ur 1-5 0-0 /HPF Mucous Ur Present UA, reflex Micro to Culture Reviewed date:06/20/2024 12:18:26 PM Interpretation: Performing Lab:[facility] , [address] [place] [id number] Notes/Report: Color, Ur Yellow Yellow Clarity, Ur [...] tendency for uric acid stone formation. Source: [employer] Current Interpretive Data was last revised on [...] C4 Reviewed date:06/20/2024 04:58:56 PM Interpretation: Performing Lab:[facility] , [address] [place] [id number] Notes/Report: Complement, C4 38 10-40 mg/dL Complement C3 Reviewed date:06/20/2024 04:58:56 PM Interpretation: Performing Lab:[facility] , [address] [place] [id number] Notes/Report: Complement, C3 116 90-180 mg/dL Basic Metabolic Panel Reviewed date:06/20/2024 04:58:56 PM Interpretation: Performing Lab:[facility] , [address] [place] [address] Notes/Report: Sodium 137 135-145 mmol/L Plasma Potassium [...] dsDNA Reviewed date:06/23/2024 03:51:41 PM Interpretation: Performing Lab:[facility] , [address] [place] [address]. [facility] [address] Notes/Report: BECKY, Qual Negative Interpretive Data Normal [...] last revised on 2020. Testing performed by: [facility], [address] [place]., [address] Reason For Referral No Information Medications Medication SIG (Take, Route, Frequency, Duration) Notes Start Date End Date Status Brixadi Active Rosuvastatin Calcium Active amLODIPine Besylate 10 MG 1 tablet Orall y Once a day; Duration: 30 day(s) Active CeleXA 20 MG 1 tablet Orally Once a day; Duration: 30 day(s) Active Social History Tobacco Use: Social History Observation Description Date Details (start date - stop date) Never Smoker NA - NA Household Question Answer Notes Marital status: single Number of children in household: 0 Tobacco Control (Standard) Question Answer Notes Tobacco use: Nonsmoker Problems Problem Type SNOMED Code ICD Code Onset Dates Problem Status W/U Status Risk Notes Problem Vitamin D deficiency (29405611) Vitamin D deficiency (E55.9) Active confirmed Vital Signs Heart Rate 66 /min 06/20/2024 Blood pressure diastolic 64 mm Hg 06/20/2024 Oximetry 96 % 06/20/2024 Height 63 in 06/20/2024 Blood pressure systolic 100 mm Hg 06/20/2024 Weight 148.0 lbs 06/20/2024 BMI 26.21 kg/m2 06/20/2024 Encounters Encounter Location Date Provider Diagnosis [facility] [address] [address] [place] [address] 06/11/2024 Rosario Du Pain in unspecified joint M25.50 ; Postmenopausal osteoporosis M81.0 and Vitamin D deficiency E55.9 [facility] [address] [facility] [address] [place] [address] 06/20/2024 Rosario Du Postmenopausal osteoporosis M81.0 ; Decreased GFR R94.4 ; Chronic anemia D64.9 ; Thrombocytopenia D69.6 and BECKY positive R76.8 [facility] [address] [facility] [address] [place] [address] 06/06/2024 Rosario Du [facility] [address] [facility] [address] [place] [address] 06/23/2024 Rosario Du Assessments Encounter Date Diagnosis (ICD Code) Assessment Notes Treatment Notes Treatment Clinical Notes Section Notes 06/11/2024 Pain in unspecified joint (ICD-10 - M25.50) 68 year old female with osteoporosis with history of traumatic fracture. She takes vitamin D 69308d/wk. Labs will be ordered to rule out [...] of traumatic fracture. She takes vitamin D 04481i/wk. Labs will be ordered to rule out [...] of traumatic fracture. She takes vitamin D 47647s/wk. Labs will be ordered to rule out [...] Insured Coverage Start Date Coverage End Date [employer] Medicare Advantage [employer] [address] [address] [place] [address] [id number] Alyssa Barksdale Self - patient is the insured Medical (General) History Medical History History ICD Code osteoporosis, anxiety, hyperlipidemia, h ypertension, GERD Surgical History Surgery Date(Month/Year) knee surgery
[2025-06-05 09:54] LABS: Alanine Aminotransferase 13 U/L (6-35); Albumin Level 4.5 g/dL (3.5-5.1); Alkaline Phosphatase 63 U/L (38-126); Anion Gap 8 mmol/L (4-12); Aspartate Amino Transferase 26 U/L (14-36); Bilirubin,Total 0.3 mg/dL (0.2-1.3); Blood Urea Nitrogen 38 mg/dL (7-17); Calcium 9.8 mg/dL (8.4-10.2); Carbon Dioxide 24 mmol/L (22-30); Chloride 110 mmol/L (98-107); Cholesterol 129 mg/dL (0-200); Estimated Glomerular Filt Rate 43; Glucose 105 mg/dL (65-110); HDL Direct 41 mg/dL; Osmolality Calculated 303 mOsm/kg (285-295); Potassium 4.3 mmol/L (3.4-5.0); Sodium 142 mmol/L (137-145); Total Protein 7.0 g/dL (6.3-8.2); Triglycerides 105 mg/dL (<150)
== END 2025-06-05 08:52 | disposition home or self-care (01) ==
LOC: CHSLAB 08:52
PROVIDERS: PCP Emergency Medicine; Visit Provider Internal Medicine Cardiovascular Disease
DX: E78.5 Hyperlipidemia, unspecified (principal)
CPT/HCPCS: 36415; 80053; 80061